=== PATIENT | female | born 1960 | race Caucasian/White ===

== ENCOUNTER 2016-04-16 14:26 | Emergency (ER) | payer OTHER ==
--- NOTE | 2016-04-16 16:05 | ED ORDER SUMMARY ---
..... Patient: SUNDAYKWABENA [facility] VisitID: [id number] [place] [address] 56y, F Registration Date/Time: 04/16/2016 ORDER SHEET Weight: 70.7 kg (stated) Allergies: Penicillin, Iodine GENERAL ORDERS: UA-Culture if indicated Urgent (14:42 04/16/2016 HOShaughnessy R.N. per protocol) (Ack 14:54 RKaruga) (15:39 HOShaughnessy R.N.) CBC w Diff Urgent (15:01 04/16/2016 HBivens A.R.N.P.) (Ack 15:04 RKaruga) (15:39 HOShaughnessy R.N.) CMP Urgent (15:04/16/2016 HBivens A.R.N.P.) (Ack 15:04 RKaruga) (15:39 HOShaughnessy R.N.) Amylase Urgent (15:01 04/16/2016 HBivens A.R.N.P.) (Ack 15:04 RKaruga) (15:39 HOShaughnessy R.N.) Lipase Urgent (15:01 04/16/2016 HBivens A.R.N.P.) (Ack 15:04 RKaruga) (15:39 HOShaughnessy R.N.) MEDICATION ORDERS: IV FLUIDS: Toradol IV 30 mg (NOW) (15:04/16/2016 HBivens A.R.N.P.) (15:39 HOShaughnessy R.N.) Zofran IV 4 mg (NOW) (15:01 04/16/2016 HBivens A.R.N.P.) (15:39 HOShaughnessy R.N.) IV Saline Lock (15:04/16/2016 HBivens A.R.N.P.) (15:39 HOShaughnessy R.N.) ORDER SHEET NOTES: [Electronically signed by Anuel Huynh R.N. (16:22 04/16/2016)] [Electronically signed by Qi LobatoP. (22:35 04/16/2016)] [Electronically locked/signed by Anuel Huynh R.N. (16:22 04/16/2016)]
--- NOTE | 2016-04-16 16:05 | ED CLINICAL REPORT ---
Clinical Report - Physicians/Mid Levels [facility] [address] [place] [address] 04/16/2016 14:26 Patient: KWABENA VALENTINE Time Seen: 14:49; upon arrival, initial patient contact, initial documentation, patient care assumed. Arrived- By private vehicle. Historian- patient. HISTORY OF PRESENT ILLNESS Chief Complaint: FLANK PAIN. At its maximum, severity described as moderate. When seen in the E.D., severity described as moderate. Modifying factors- worsened by antacids. Not relieved by anything. It is described as "pain". No radiation. It is described as located in the left upper quadrant and the left flank. This started about 5 days ago and is still present. It was abrupt in onset and has been constant. The patient has had nausea and loss of appetite. No vomiting or diarrhea. No additional abdominal pain. No recent travel. Similar symptoms previously: None. Recent medical care: The patient was seen recently in the office. ( saw her pcp approx 1 month ago, meds changed for dm). REVIEW OF SYSTEMS No constipation, black stools, hematemesis, difficulty with urination or pain with urination. No abnormal bleeding, bloody stools, fever, chest pain or difficulty breathing. The patient has had urinary frequency. Denies current . All systems otherwise negative, except as recorded above. PAST HISTORY See nurses notes. PROBLEMS: Neuropathy. Diabetes Mellitus. --14:57 Anuel Huynh, RDeandre. ADDITIONAL SURGERIES: no known surgeries. Celiac disease. Surgeries: (Cassi major). SOCIAL HISTORY Never smoker. No alcohol use or drug use. No recent travel. Is a local resident. FAMILY HISTORY Negative. ADDITIONAL NOTES The nursing notes have been reviewed with agreement regarding the chief complaint, HPI, ROS, PMH and patient medications and allergies. PHYSICAL EXAM Vital Signs: 04/16/2016 14:51 BP: 134/72. HR: 81. RR: 16. O2 saturation: 100%. Temp: 98.1 F. Pain level now: 5/10. Have been reviewed as normal and appear to be correct. Appearance: Alert. Oriented X3. No acute distress. Eyes: Pupils equal, round and reactive to light. Eyes normal inspection. ENT: Ears normal. Nose normal. Pharynx normal. Neck: Normal inspection. Neck supple. CVS: Normal heart rate and rhythm. Heart sounds normal. Pulses normal. Respiratory: No respiratory distress. Breath sounds normal. Chest nontender. Abdomen: Soft. Mild tenderness in the left upper quadrant and left side of the abdomen. No guarding, rebound tenderness or Massey's, obturator or psoas sign present. Bowel sounds normal. No organomegaly. No mass. Tenderness present. Back: Abnormal inspection. Mild CVA tenderness on the left. Skin: Skin warm and dry. Normal skin color. No rash. Normal skin turgor. Extremities: Extremities exhibit normal ROM. No lower extremity edema. Neuro: Oriented X 3. No motor deficit. No sensory deficit. LABS, X-RAYS, AND EKG Laboratory Tests: UA-Culture if indicated: (JOB: 04/16/2016 14:48) ( [facility] [place] 04/16/2016 15:08) Final results Test Result Flag Units (Reference) URINE COLOR YELLOW URINE APPEARANCE CLEAR URINE GLUCOSE NEGATIVE (NEGATIVE) URINE BILIRUBIN NEGATIVE (NEGATIVE) URINE KETONE NEGATIVE (NEGATIVE) URINE SPECIFIC GRAVITY 1.020 (1.010-1.030) URINE PH 6.0 (5.0-8.0) URINE PROTEIN NEGATIVE (NEGATIVE) URINE UROBILINOGEN 0.2 EU/dL (0.2-1.0) URINE NITRITE NEGATIVE (NEGATIVE) URINE BLOOD TRACE-INTACT (NEGATIVE) URINE LEUK ESTERASE NEGATIVE (NEGATIVE) URINE RBC RARE rbc/hpf (0-1) URINE WBC 0-1 wbc/hpf (0-1) URINE EPITHELIAL CELLS 1-3 EPI/hpf (0-5) URINE BACTERIA NONE SEEN (NONE SEEN) URINE COMMENT CULT NOT INDICATED 1+ MUCUSURINE CULTURES ARE SET-UP BASED ON THE FOLLOWING CRITERIA:POSITIVE NITRITEPOSITIVE LEUKOCYTE ESTERASEGREATER THAN 10 WHITE BLOOD CELLSMODERATE (2+) OR GREATER BACTERIA CBC w Diff: (JOB: 04/16/2016 15:13) ( [facility] [place] 04/16/2016 15:30) Final results Test Result Flag Units (Reference) WHITE BLOOD COUNT 5.6 K/uL (4.5-11.5) RED BLOOD COUNT 4.38 M/uL (4.00-5.20) HEMOGLOBIN 13.3 gm/dL (12.0-16.0) HEMATOCRIT 38.8 % (36.0-46.0) MEAN CELL VOLUME 89 fL (80-100) MEAN CORPUSCULAR HGB 30 pg (26-34) MEAN CORPUSCULAR HGB CONC 34 g/dL (31-37) RED CELL DISTRIBUTION WIDTH 12.6 % (11.6-14.8) PLATELET COUNT 253 K/uL (150-400) NEUTROPHIL % 59.5 % (50-75) LYMPH % 30.3 % (25-40) MONO % 9.5 % (3-14) EOSINOPHIL % 0.3 % (0-4) BASOPHIL % 0.4 % (0-2) CMP: (JOB: 04/16/2016 15:13) ( MsgRcvd 04/16/2016 15:51) Final results Test Result Flag Units (Reference) GLUCOSE 181 H mg/dL (70-110) BUN 12 mg/dL (7-18) CREATININE 0.7 mg/dL (0.6-1.3) Estimated GFR >60 mL/min Estimated GFR- >60 mL/min Note: Persistent reduction over 3 months in eGFR<60 mL/min/1.73 m2 defines CKD. Patients with eGFR values>=60 mL/min/1.73 m2 may also have CKD if evidence ofpersistent proteinuria. Additional information may be foundat www.[email or web address].org. SODIUM 139 mmol/L (136-145) POTASSIUM 4.1 mmol/L (3.5-5.1) CHLORIDE 103 mmol/L (98-107) CARBON DIOXIDE 25 mmol/L (21-32) CALCIUM 9.1 mg/dL (8.5-10.1) TOTAL PROTEIN 7.5 g/dL (6.4-8.2) ALBUMIN 3.8 g/dL (3.3-5.0) BILIRUBIN, TOTAL 0.6 mg/dL (0.0-1.0) ALKALINE PHOSPHATASE 75 U/L (46-116) AST (SGOT) 55 H U/L (15-37) ALT (SGPT) 61 U/L (12-78) LIPASE 221 U/L (73-393) AMYLASE 62 U/L (25-115) . Bedside Tests: Glucose: mild hyperglycemia - 192 (performed at bedside). PROGRESS AND PROCEDURES Patient counseled in person regarding the patient's stable condition, test results and diagnosis. 15:57. Differential Diagnosis: I considered gastritis, gastroenteritis, peptic ulcer disease, gastroesophageal reflux disease, diverticulitis, ulcerative colitis, Crohn's disease, splenic abscess, urinary tract infection, cystitis, ureterolithiasis, cancer and viral syndrome as a possible cause of abdominal pain in this patient. This is a partial list of diagnoses considered. Above considerations are based on history, physical exam and laboratory data. Differential diagnosis was discussed with patient. Disposition: Discharged home in good and improved condition (16:05). Condition: good and stable. CLINICAL IMPRESSION Acute left upper quadrant abdominal pain of undetermined cause. INSTRUCTIONS Warnings: GENERAL WARNINGS: Return or contact your physician immediately if your condition worsens or changes unexpectedly, if not improving as expected, or if other problems arise. SPECIFICALLY, return if you develop pain in the abdomen or pelvis, fever, vomiting, the inability to keep fluids down, blood in vomitus, blood in diarrhea, fainting or lightheadedness. Prescription Medications: Zofran 4 mg: Take 1 orally every six hours as needed for nausea/vomiting. Dispense ten (10). No refills. Substitution is permissible. Pepcid 20 mg tablets: Take 1 orally every 12 hours. Dispense thirty (30). No refills. Substitution is permissible. Bentyl 20 mg tablets: take 1 orally every 6 hours as needed. Dispense thirty (30). No refills. Substitution is permissible. Follow-up: Follow up with your doctor in about two days even if well. Call for an appointment. Summary of care provided to patient. Understanding of the discharge instructions verbalized by patient. (Electronically signed by Qi Lobato A.R.N.P. 04/16/2016 22:35)
--- NOTE | 2016-04-16 16:05 | ED NURSING NOTES ---
Clinical Report - Nurses [facility] [address] [place] [address] 04/16/2016 14:26 Patient: KWABENA VALENTINE TRIAGE Triage time 1451 PM. Chief Complaint: FREQUENCY and ABDOMINAL PAIN and LEFT-SIDED FLANK PAIN. Alert. No acute distress. --14:57 Aunel Huynh R.N. 14:51 04/16/16. BP: 134/72 taken on the right arm, via an automated monitor, while sitting. HR: 81. RR: 16. O2 saturation: 100%. Temp: 98.1 F (oral). Pain level now: 07/26. --14:57 Anuel Huynh R.N. Weight: 70.7 kg stated. Height/Length: 65 inches Per Patient. BMI: 26. --14:53 Anuel Hunyh R.N. Medications Loratadine-D 24HR Oral. --15:05 Anuel Huynh R.N. Gabapentin Oral. --15:05 Anuel Huynh R.N. Sertraline HCl Oral. --15:05 Anuel Huynh R.N. MetFORMIN HCl Oral. --15:06 Anuel Huynh R.N. Simvastatin Oral. --15:06 Anuel Huynh R.N. Lisinopril Oral. --15:06 Anuel Huynh R.N. Omeprazole Oral. --15:06 Anuel Huynh R.N. Fluconazole Oral. --15:06 Anuel Huynh R.N. Allergies Penicillin. --14:56 Anuel Huynh R.N. Iodine. --14:56 Anuel Huynh R.Ginny. History Arrived by private vehicle. Historian: patient. Accompanied by spouse. Onset. (about 5 days). ( Patient presents to the ED with symptoms of left sided flank pain that wraps around her abdomen. Patient states that she has been urinating more frequently at night. Patient states that she has a history of diabetes and takes Metformin. Patient states her family physician recently put her on a medication to help protect kidneys from the Metformin. Patient states that the medication made her feel awful and she stopped it after 3 doses.). She has had abdominal pain. SOCIAL HX: Never smoker. Alcohol use. (no). History of drug use. (no). FALL RISK ASSESSMENT: Fall risk assessment completed. No fall risk identified. NUTRITIONAL RISK ASSESSMENT: The nutritional risk assessment revealed no deficiencies. FUNCTIONAL ASSESSMENT: Functional assessment: no impairments noted. LEARNING NEEDS ASSESSMENT: The learning needs assessment revealed no barriers. SKIN INTEGRITY ASSESSMENT: Skin integrity risk assessment completed. No skin integrity risk identified. --14:57 Anuel Huynh R.N. PROBLEMS: Neuropathy. Diabetes Mellitus. --14:57 Anuel Huynh R.N. ADDITIONAL SURGERIES: no known surgeries. Interventions ID band on patient. --14:57 Anuel Huynh R.N. PHYSICAL ASSESSMENT Ambulatory to room. GENERAL / NEURO / PSYCH: Alert. Oriented X 4. Appears in no acute distress. HEENT: Mucous membranes are pink. RESPIRATORY: Respirations not labored. Breath sounds within normal limits. CVS: Normal heart rate and rhythm. Capillary refill less than 2 seconds. GI / : Abdominal distention. Abdominal tenderness in the left upper quadrant and left side of the abdomen. Guarding present. Guarding present. Bowel sounds within normal limits. She has had frequency of urination (at night). SKIN: Skin is warm and dry. --14:59 Anuel Huynh R.N. NURSING PROGRESS NOTES Reassurance given. Call light placed in reach. Side rails up x 1. Bed placed in lowest position. Brakes of bed on. --14:59 Anuel Huynh R.N. 15:38 04/16/16. BP: 128/67. HR: 75. RR: 16. O2 saturation: 99%. Pain level now: 0/10. --15:39 Anuel Huynh R.N. Reassurance given. --15:39 Anuel Huynh R.N. 15:39 04/16/2016 Site #1 started via IV in the left forearm with an 18g angiocath; one attempt. Blood drawn: rainbow set. Saline lock flushed with 10 mL saline. --15:39 Anuel Huynh R.N. 15:39 04/16/2016 Toradol IVP 30 mg given over 2 minute(s) via site #1. Allergies verified and confirmed 5 rights. IV patency established. IV site checked: no pain, redness, or swelling. IV flushed thoroughly pre- and post-medication administration. IVP given by RN. --15:39 Anuel Huynh R.N. 15:39 04/16/2016 Zofran (Ondansetron HCl) IVP 4 mg given over 2 minute(s) via site #1. Allergies verified and confirmed 5 rights. IV patency established. IV site checked: no pain, redness, or swelling. IV flushed thoroughly pre- and post-medication administration. IVP given by RN. --15:39 Anuel Huynh R.N. DISPOSITION / DISCHARGE 16:19 04/16/16. BP: 123/73 (regular adult cuff) taken on the left arm, via an automated monitor, while lying. HR: 75. RR: 18. O2 saturation: 99%. Temp: 98.2 F (oral). Pain level now: 0/10. --16:20 Anuel Huynh R.N. Condition at departure: improved. No learning barriers present. Discharge instructions provided and reviewed with the patient. Reviewed medication(s) side effects, precautions, dosing and course information. Prescription(s) given to the patient. Reviewed referral to a primary care physician. Reviewed bland diet and need for increased fluid intake. The patient has no activity restrictions. Patient verbalized understanding. Written instructions provided in Guamanian. The patient was discharged home and accompanied by family. She left the Emergency Department ambulatory and via private vehicle. Family member driving. --16:20 Anuel Huynh R.N. The goals identified in the patient's plan of care were met. --16:20 Lino, Anuel, R.N. Departure time: 1620 PM. --16:20 Anuel Huynh R.N. 16:20 04/16/2016 Site #1 removed upon discharge. Catheter intact. Pressure dressing applied. --16:20 Anuel Huynh R.N. Locked/Released at 04/16/2016 16:22 by Anuel Huynh R.N.
--- NOTE | 2016-04-16 16:05 | ED ORDER SUMMARY ---
..... Patient: SUNDAYKWABENA OrderSheet [facility] VisitID: [id number] [place] [address] 56y, F Registration Date/Time: 04/16/2016 ORDER SHEET Weight: 70.7 kg (stated) Allergies: Penicillin, Iodine GENERAL ORDERS: UA-Culture if indicated Urgent (14:42 04/16/2016 HOShaughnessy R.N. per protocol) (Ack 14:54 RKaruga) (15:39 HOShaughnessy R.N.) CBC w Diff Urgent (15:01 04/16/2016 HBivens A.R.N.P.) (Ack 15:04 RKaruga) (15:39 HOShaughnessy R.N.) CMP Urgent (15:04/16/2016 HBivens A.R.N.P.) (Ack 15:04 RKaruga) (15:39 HOShaughnessy R.N.) Amylase Urgent (15:01 04/16/2016 HBivens A.R.N.P.) (Ack 15:04 RKaruga) (15:39 HOShaughnessy R.N.) Lipase Urgent (15:01 04/16/2016 HBivens A.R.N.P.) (Ack 15:04 RKaruga) (15:39 HOShaughnessy R.N.) MEDICATION ORDERS: IV FLUIDS: Toradol IV 30 mg (NOW) (15:04/16/2016 HBivens A.R.N.P.) (15:39 HOShaughnessy R.N.) Zofran IV 4 mg (NOW) (15:01 04/16/2016 HBivens A.R.N.P.) (15:39 HOShaughnessy R.N.) IV Saline Lock (15:04/16/2016 HBivens A.R.N.P.) (15:39 HOShaughnessy R.N.) ORDER SHEET NOTES: [Electronically signed by Anuel Huynh R.N. (16:22 04/16/2016)] [Electronically signed by Qi LobatoP. (22:35 04/16/2016)] [Electronically locked/signed by Anuel Huynh R.N. (16:22 04/16/2016)]
--- NOTE | 2016-04-16 22:36 | ED MED RECONCILIATION SUMMARY ---
Patient: KWABENA VALENTINE Medication Reconciliation Report [facility] VisitID: [id number] [place] [address] 56y, F Registration Date/Time: 04/16/2016 Weight: 70.7 kg Height/Length: 65 in. BMI: 26.0 ALLERGIES: Iodine, Penicillin The patient's Home Medications are listed below: THE FOLLOWING MEDICATIONS NEED TO BE RECONCILED: Fluconazole Oral Gabapentin Oral Lisinopril Oral Loratadine-D 24HR Oral MetFORMIN HCl Oral Omeprazole Oral Sertraline HCl Oral Simvastatin Oral The source(s) of the original Home Medication information: Not obtained. The following Medications were given to the patient in the Emergency Department: Toradol [IVP] IVP 30 mg, administered: 04/16/2016 3:39:00 PM Zofran [IVP] IVP 4 mg, administered: 04/16/2016 3:39:00 PM The following Medications were prescribed to the patient: Zofran 4 mg: Take 1 orally every six hours as needed for nausea/vomiting. Dispense ten (10). No refills. Substitution is permissible. -- Qi Lobato A.R.N.P. Pepcid 20 mg tablets: Take 1 orally every 12 hours. Dispense thirty (30). No refills. Substitution is permissible. -- Qi Lobato A.R.N.P. Bentyl 20 mg tablets: take 1 orally every 6 hours as needed. Dispense thirty (30). No refills. Substitution is permissible. -- Qi Lobato A.R.N.P.
--- NOTE | 2016-04-16 22:36 | ED DISCHARGE INSTRUCTIONS ---
Patient: SUNDAYKWABENA General Instructions [facility] VisitID: [id number] [place] [address] 56y, F Registration Date/Time: 04/16/2016 Acute left upper quadrant abdominal pain of undetermined cause. INSTRUCTIONS Warnings: GENERAL WARNINGS: Return or contact your physician immediately if your condition worsens or changes unexpectedly, if not improving as expected, or if other problems arise. SPECIFICALLY, return if you develop pain in the abdomen or pelvis, fever, vomiting, the inability to keep fluids down, blood in vomitus, blood in diarrhea, fainting or lightheadedness. Prescription Medications: Zofran 4 mg: Take 1 orally every six hours as needed for nausea/vomiting. Dispense ten (10). No refills. Substitution is permissible. Pepcid 20 mg tablets: Take 1 orally every 12 hours. Dispense thirty (30). No refills. Substitution is permissible. Bentyl 20 mg tablets: take 1 orally every 6 hours as needed. Dispense thirty (30). No refills. Substitution is permissible. Follow-up: Follow up with your doctor in about two days even if well. Call for an appointment. Summary of care provided to patient. Understanding of the discharge instructions verbalized by patient. ADDITIONAL INFORMATION Abdominal Pain, Unknown Cause (Female) The exact cause of your abdominal (stomach) pain is not certain. This does not mean that this is something to worry about, or the right tests were not done. Everyone likes to know the exact cause of the problem, but sometimes with abdominal pain, there is no clear-cut cause, and this could be a good thing. The good news is that your symptoms can be treated, and you will feel better. Your condition does not seem serious now; however, sometimes the signs of a serious problem may take more time to appear. For this reason,it is important for you to watch for any new symptoms, problems,or worsening of your condition. Over the next few days, the abdominal pain may come and go, or be continuous. Other common symptoms can include nausea and vomiting. Sometimes it can be difficult to tell if you feel nauseous, you may just feel bad and not associate that feeling with nausea. Constipation, diarrhea, and a fever may go along with the pain. The pain may continue even if treated correctly over the following days. Depending on how things go, sometimes the cause can become clear and may require further or different treatment. Additional evaluations, medications, or tests may be needed. Home care Your health care provider may prescribe medications for pain, symptoms, or an infection. Follow the health care provider's instructions for taking these medications. General care Rest until your next exam. No strenuous activities. Try to find positions that ease discomfort. A small pillow placed on the abdomen may help relieve pain. Something warm on your abdomen (such as a heating pad) may help, but be careful not to burn yourself. Diet Do not force yourself to eat, especially if having cramps, vomiting, or diarrhea. Water is important so you do not get dehydrated. Soup may also be good. Sports drinks may also help, especially if they are not too acidic. Make sure you don't drink sugary drinks as this can make things worse. Take liquids in small amounts. Do not guzzle them. Caffeine sometimes makes the pain and cramping worse. Avoid dairy products if you have vomiting or diarrhea. Don't eat large amounts at a time. Wait a few minutes between bites. Eat a diet low in fiber (called a low-residue diet). Foods allowed include refined breads, white rice, fruit and vegetable juices without pulp, tender meats. These foods will pass more easily through the intestine. Avoid whole-grain foods, whole fruits and vegetables, meats, seeds and nuts, fried or fatty foods, dairy, alcohol and spicy foods until your symptoms go away. Follow-up care Follow up with your health care provider as instructed, or if your pain does not begin to improve in the next 24 hours. When to seek medical care Seek prompt medical care if any of the following occur: Pain gets worse or moves to the right lower abdomen New or worsening vomiting or diarrhea Swelling of the abdomen Unable to pass stool for more than three days Fever of 100.4F (38C) or higher, or as directed by your healthcare provider. Blood in vomit or bowel movements (dark red or black color) Jaundice (yellow color of eyes and skin) Weakness, dizziness Chest, arm, back, neck or jaw pain Unexpected vaginal bleeding or missed period Call 911 Call emergency services if any of the following occur: Trouble breathing Confusion Fainting or loss of consciousness Rapid heart rate Seizure Ondansetron Oral disintegrating tablet What is this medicine? ONDANSETRON (on LEONCIO se james) is used to treat nausea and vomiting caused by chemotherapy. It is also used to prevent or treat nausea and vomiting after surgery. How should I use this medicine? These tablets are made to dissolve in the mouth. Do not try to push the tablet through the foil backing. With dry hands, peel away the foil backing and gently remove the tablet. Place the tablet in the mouth and allow it to dissolve, then swallow. While you may take these tablets with water, it is not necessary to do so. Talk to your sales enablement analyst regarding the use of this medicine in children. Special care may be needed. What side effects may I notice from receiving this medicine? Side effects that you should report to your doctor or health healthcare administrative assistant as soon as possible: allergic reactions like skin rash, itching or hives, swelling of the face, lips, or tongue breathing problems dizziness fast or irregular heartbeat feeling faint or lightheaded, falls fever and chills swelling of the hands and feet tightness in the chest Side effects that usually do not require medical attention (report to your doctor or health healthcare administrative assistant if they continue or are bothersome): constipation or diarrhea headache What may interact with this medicine? Do not take this medicine with any of the following medications: -apomorphine -cisapride -dofetilide -dronedarone -pimozide -thioridazine -ziprasidone This medicine may also interact with the following medications: -carbamazepine -phenytoin -rifampicin -tramadol -other medicines that prolong the QT interval (cause an abnormal heart rhythm) What if I miss a dose? If you miss a dose, take it as soon as you can. If it is almost time for your next dose, take only that dose. Do not take double or extra doses. Where should I keep my medicine? Keep out of the reach of children. Store between 2 and 30 degrees C (36 and 86 degrees F). Throw away any unused medicine after the expiration date. What should I tell my health care provider before I take this medicine? They need to know if you have any of these conditions: heart disease history of irregular heartbeat liver disease low levels of magnesium or potassium in the blood an unusual or allergic reaction to ondansetron, granisetron, other medicines, foods, dyes, or preservatives or trying to get breast-feeding What should I watch for while using this medicine? Check with your doctor or health healthcare administrative assistant as soon as you can if you have any sign of an allergic reaction. Famotidine Oral tablet What is this medicine? FAMOTIDINE (fa CHIQUIS stevens) is a type of antihistamine that blocks the release of stomach acid. It is used to treat stomach or intestinal ulcers. It can also relieve heartburn from acid reflux. How should I use this medicine? Take this medicine by mouth with a glass of water. Follow the directions on the prescription label. If you only take this medicine once a day, take it at bedtime. Take your doses at regular intervals. Do not take your medicine more often than directed. Talk to your sales enablement analyst regarding the use of this medicine in children. Special care may be needed. What side effects may I notice from receiving this medicine? Side effects that you should report to your doctor or health healthcare administrative assistant as soon as possible: agitation, nervousness confusion hallucinations skin rash, itching Side effects that usually do not require medical attention (report to your doctor or health healthcare administrative assistant if they continue or are bothersome): constipation diarrhea dizziness headache What may interact with this medicine? delavirdine itraconazole ketoconazole What if I miss a dose? If you miss a dose, take it as soon as you can. If it is almost time for your next dose, take only that dose. Do not take double or extra doses. Where should I keep my medicine? Keep out of the reach of children. Store at room temperature between 15 and 30 degrees C (59 and 86 degrees F). Do not freeze. Throw away any unused medicine after the expiration date. What should I tell my health care provider before I take this medicine? They need to know if you have any of these conditions: kidney or liver disease trouble swallowing an unusual or allergic reaction to famotidine, other medicines, foods, dyes, or preservatives or trying to get breast-feeding What should I watch for while using this medicine? Tell your doctor or health healthcare administrative assistant if your condition does not start to get better or if it gets worse. Finish the full course of tablets prescribed, even if you feel better. Do not take with aspirin, ibuprofen or other antiinflammatory medicines. These can make your condition worse. Do not smoke cigarettes or drink alcohol. These cause irritation in your stomach and can increase the time it will take for ulcers to heal. If you get black, tarry stools or vomit up what looks like coffee grounds, call your doctor or health healthcare administrative assistant at once. You may have a bleeding ulcer. Dicyclomine Hydrochloride Oral tablet What is this medicine? DICYCLOMINE (dye VICENTEE mary valencia) is used to treat bowel problems including irritable bowel syndrome. How should I use this medicine? Take this medicine by mouth with a glass of water. Follow the directions on the prescription label. It is best to take this medicine on an empty stomach, 30 minutes to 1 hour before meals. Take your medicine at regular intervals. Do not take your medicine more often than directed. Talk to your sales enablement analyst regarding the use of this medicine in children. Special care may be needed. While this drug may be prescribed for children as young as 6 months of age for selected conditions, precautions do apply. Patients over 65 years old may have a stronger reaction and need a smaller dose. What side effects may I notice from receiving this medicine? Side effects that you should report to your doctor or health healthcare administrative assistant as soon as possible: agitation, nervousness, confusion difficulty swallowing dizziness, drowsiness fast or slow heartbeat hallucinations pain or difficulty passing urine Side effects that usually do not require medical attention (report to your doctor or health healthcare administrative assistant if they continue or are bothersome): constipation headache nausea or vomiting sexual difficulty What may interact with this medicine? amantadine antacids benztropine digoxin disopyramide medicines for allergies, colds and breathing difficulties medicines for alzheimer's disease medicines for anxiety or sleeping problems medicines for depression or psychotic disturbances medicines for diarrhea medicines for pain metoclopramide tegaserod What if I miss a dose? If you miss a dose, take it as soon as you can. If it is almost time for your next dose, take only that dose. Do not take double or extra doses. Where should I keep my medicine? Keep out of the reach of children. Store at room temperature below 30 degrees C (86 degrees F). Protect from light. Throw away any unused medicine after the expiration date. What should I tell my health care provider before I take this medicine? They need to know if you have any of these conditions: difficulty passing urine esophagus problems or heartburn glaucoma heart disease, or previous heart attack myasthenia gravis prostate trouble stomach infection, or obstruction ulcerative colitis an unusual or allergic reaction to dicyclomine, other medicines, foods, dyes, or preservatives or trying to get breast-feeding What should I watch for while using this medicine? You may get drowsy, dizzy, or have blurred vision. Do not drive, use machinery, or do anything that needs mental alertness until you know how this medicine affects you. To reduce the risk of dizzy or fainting spells, do not sit or stand up quickly, especially if you are an older patient. Alcohol can make you more drowsy, avoid alcoholic drinks. Stay out of bright light and wear sunglasses if this medicine makes your eyes more sensitive to light. Avoid extreme heat (hot tubs, saunas). This medicine can cause you to sweat less than normal. Your body temperature could increase to dangerous levels, which may lead to heat stroke. Antacids can stop this medicine from working. If you get an upset stomach and want to take an antacid, make sure there is an interval of at least 1 to 2 hours before or after you take this medicine. Your mouth may get dry. Chewing sugarless gum or sucking hard candy, and drinking plenty of water may help. Contact your doctor if the problem does not go away or is severe. You have been given the following additional information: Abdominal Pain, Unknown Cause, (Female) Ondansetron Oral disintegrating tablet Famotidine Oral tablet Dicyclomine Hydrochloride Oral tablet (Electronically signed by Qi Lobato A.R.N.P. 04/16/2016 22:35)
--- NOTE | 2016-04-16 22:36 | ED MAR SUMMARY ---
..... Medication Administration Record [facility] [address] [place] [address] Patient: KWABENA VALENTINE Visit ID: [id number] 56y, F Weight: 70.7 kg Height/Length: 65 in BMI: 26 ALLERGIES: Iodine, Penicillin Given 15:39 04/16/2016 Anuel Huynh, RAlondraNAlondra Medication Administered: TORADOL [IVP], Dose: 30 mg IVP over 2 minute(s), Site: #1 left forearm. Medication Ordered: Toradol IV 30 mg (NOW). Given 15:39 04/16/2016 Anuel Huynh, R.N. Medication Administered: ZOFRAN [IVP] (ONDANSETRON HCL), Dose: 4 mg IVP over 2 minute(s), Site: #1 left forearm. Medication Ordered: Zofran IV 4 mg (NOW).
--- NOTE | 2016-04-16 22:36 | ED MED RECONCILIATION SUMMARY ---
Patient: KWABENA VALENTINE Medication Reconciliation Report [facility] VisitID: [id number] [place] [address] 56y, F Registration Date/Time: 04/16/2016 Weight: 70.7 kg Height/Length: 65 in. BMI: 26.0 ALLERGIES: Iodine, Penicillin The patient's Home Medications are listed below: THE FOLLOWING MEDICATIONS NEED TO BE RECONCILED: Fluconazole Oral Gabapentin Oral Lisinopril Oral Loratadine-D 24HR Oral MetFORMIN HCl Oral Omeprazole Oral Sertraline HCl Oral Simvastatin Oral The source(s) of the original Home Medication information: Not obtained. The following Medications were given to the patient in the Emergency Department: Toradol [IVP] IVP 30 mg, administered: 04/16/2016 3:39:00 PM Zofran [IVP] IVP 4 mg, administered: 04/16/2016 3:39:00 PM The following Medications were prescribed to the patient: Zofran 4 mg: Take 1 orally every six hours as needed for nausea/vomiting. Dispense ten (10). No refills. Substitution is permissible. -- Qi Lobato A.R.N.P. Pepcid 20 mg tablets: Take 1 orally every 12 hours. Dispense thirty (30). No refills. Substitution is permissible. -- Qi Lobato A.R.N.P. Bentyl 20 mg tablets: take 1 orally every 6 hours as needed. Dispense thirty (30). No refills. Substitution is permissible. -- Qi Lobato A.R.N.P.
--- NOTE | 2016-04-16 22:36 | ED MAR SUMMARY ---
..... Medication Administration Record [facility] [address] [place] [address] Patient: KWABENA VALENTINE Visit ID: [id number] 56y, F Weight: 70.7 kg Height/Length: 65 in BMI: 26 ALLERGIES: Iodine, Penicillin Given 15:39 04/16/2016 Anuel Huynh, RAlondraNAlondra Medication Administered: TORADOL [IVP], Dose: 30 mg IVP over 2 minute(s), Site: #1 left forearm. Medication Ordered: Toradol IV 30 mg (NOW). Given 15:39 04/16/2016 Anuel Huynh, R.N. Medication Administered: ZOFRAN [IVP] (ONDANSETRON HCL), Dose: 4 mg IVP over 2 minute(s), Site: #1 left forearm. Medication Ordered: Zofran IV 4 mg (NOW).
== END 2016-04-16 16:20 | disposition home or self-care (01) ==
LOC: ED SRH 14:26
DX: R10.12 Left upper quadrant pain (principal); E11.9 Type 2 diabetes mellitus without complications; Z79.84 Long term (current) use of oral hypoglycemic drugs; Z88.0 Allergy status to penicillin; Z91.041 Radiographic dye allergy status
CPT/HCPCS: 90004; 90100; 92235; 92530; 95059